=== PATIENT | male | born 1980 | race Caucasian/White ===

== ENCOUNTER 2021-06-28 19:29 | Emergency (ER) | payer OTHER ==
[~2021-06-28] VITALS: Ht 175.3 cm; Wt 72.6 kg
[2021-06-28 19:35] VITALS: BP 224/141
--- NOTE | 2021-06-28 19:38 | NUR ---
TO LOBBY A/W BED AMBULATORY
--- NOTE | 2021-06-28 20:05 | NUR ---
received pt from intake and placed to bed 02. pt currently a/o x 4, gcs 15. able to move all extremities freely. pt is a 41 year old male with hx of HTN, DM with LKW of 06/26/21 1200 coming in for partial hemianopia, mild aphasia and dysarthria. BS initial 395. pt denies headache. denies any head trauma within the last 2 weeks. sts having blurred vision approximately a week ago. denies any n/v a this time. stroke protocol in place.
[2021-06-28] MEDS ORDERED: NICARDIPINE HYDROCHLORIDE 25 MG in NACL 0.9% 240 ML IV ONE (20:10)
[2021-06-28] MEDS ORDERED: NICARDIPINE HYDROCHLORIDE 2.5 MG/ML VIAL IV ONE ×2 (20:10→22:23)
--- NOTE | 2021-06-28 20:15 | NUR ---
code brain called.
--- NOTE | 2021-06-28 20:25 | NUR ---
pt taken to CT per stroke protocol
[2021-06-28 20:33] LABS: BASOPHILS # (AUTO) 0.1 K/uL (0.00-0.22); BASOPHILS % (AUTO) 0.7 % (0.0-2.0); EOSINOPHILS # (AUTO) 0.1 K/uL (0-0.4); HEMATOCRIT 42.3 % (36-52); HEMOGLOBIN 14.6 g/dL (12.0-18.0); LYMPHOCYTES # (AUTO) 1.9 K/uL (2.0-11.5); LYMPHOCYTES % (AUTO) 22.6 % (20.5-51.1); MEAN CORPUSCULAR HEMOGLOBIN 30 pg (27-31); MEAN CORPUSCULAR HGB CONC 35 g/dL (33-37); MEAN CORPUSCULAR VOLUME 87.3 fL (80-94); MONOCYTES # (AUTO) 0.5 K/uL (0.8-1.0); MONOCYTES % (AUTO) 5.8 % (1.7-9.3); NEUTROPHILS % (AUTO) 69.9 % (42.2-75.2); PLATELET COUNT (AUTO) 427 K/uL (140-450); RED BLOOD CELL COUNT(AUTO) 4.85 MIL/uL (4.20-6.10); RED CELL DISTRIBUTION WIDTH 13.2 % (11.6-13.7); WHITE BLOOD COUNT (AUTO) 8.6 K/uL (4.8-10.8)
[2021-06-28 20:53] LABS: ALBUMIN 2.9 g/dL (3.4-5.0); ANION GAP 9.7 (8-16); ASPARTATE AMINOTRANSFERASE 14 U/L (15-37); CARBON DIOXIDE 30.5 mmol/L (21-32); CHLORIDE 93 mmol/L (98-107); CREATININE 1.1 mg/dL (0.6-1.3); GFR ARICAN-AMERICAN 95 mL/min (>90); GLUCOSE 385 mg/dL (74-106); POTASSIUM 3.2 mmol/L (3.5-5.1); SODIUM SERUM 130 mmol/L (136-145); TOTAL BILIRUBIN 0.4 mg/dL (0.0-1.0); UREA NITROGEN, BLOOD 15 mg/dL (7-18)
[2021-06-28 20:55] LABS: SALICYLATE < 2.8 mg/dL (2.8-20.0)
[2021-06-28 20:56] LABS: ACETAMINOPHEN < 0.5 ug/ml (10-30)
--- NOTE | 2021-06-28 21:07 | NUR ---
Carolyn carlin in [facility] - 06/28/21 at 2112 by [id number] [facility] 3. passed swallow screen
--- NOTE | 2021-06-28 21:12 | NUR ---
[facility] 4. failed dysphagia screening
--- NOTE | 2021-06-28 21:20 | NUR ---
joesph swab given to lab.
[2021-06-28] MEDS ORDERED: ASPIRIN 325 MG TAB PO ONE (21:45)
[2021-06-28] MEDS ORDERED: CLOPIDOGREL 75 MG TAB PO ONE (21:45)
[2021-06-28 21:58] LABS: APPEARANCE,URINE CLEAR (CLEAR); BILIRUBIN,URINE NEGATIVE (NEGATIVE); BLOOD, URINE NEGATIVE (NEGATIVE); LEUKOCYTE ESTERASE ,URINE NEGATIVE (NEGATIVE); NITRITE, URINE NEGATIVE (NEGATIVE); UGLUCOSE 3+ (NEGATIVE)
[2021-06-28 22:05] LABS: COLOR,URINE STRAW (YELLOW)
[2021-06-28] MEDS ORDERED: NACL 0.9% 1,000 ML IV ONE (22:10)
[2021-06-28 22:15] LABS: BARBITURATE, URINE NEGATIVE ng/ml (NEG <=200); BENZODIAZEPINE, URINE NEGATIVE ng/mL (NEG <=200); CANNABINOID, URINE NEGATIVE ng/mL (NEG <=50); COCAINE, URINE NEGATIVE ng/mL (NEG <=300); OPIATE, URINE NEGATIVE ng/mL (NEG <=2000); PHENCYCLIDINE SCREEN,URINE NEGATIVE ng/mL (NEG <=25)
[2021-06-28 22:45] VITALS: BP 166/72
--- NOTE | 2021-06-28 22:47 | NUR ---
report given to Jeni AUSTIN from [facility]. pt will be a ER to ER transfer under the care of Dr. Reynolds. # for report called @ [phone]
[2021-06-28] MEDS ORDERED: LABETALOL 100 MG/20 ML VIAL IVP ONE (22:55)
--- NOTE | 2021-06-28 23:07 | NUR ---
[facility] [id number] arrived to ER. report given to Jayme Cline. pt will be transported to [facility] ER to ER under the care of Dr. Reynolds.
--- NOTE | 2021-06-28 23:16 | NUR ---
called [facility] to speak with Jeni AUSTIN to give an update of pt status and transfer.
--- NOTE | 2021-06-28 23:17 | NUR ---
[facility] currently en route to [facility].
--- NOTE | 2021-06-30 12:15 | NUR ---
LATE ENTRY- IV NICARDIPINE DRIP DISCONTINUED AT 2317.
== END 2021-06-28 23:17 | disposition short-term general hospital (02) ==
LOC: MED 19:29
DX: I63.9 Cerebral infarction, unspecified (principal); Z20.822 Contact with and (suspected) exposure to COVID-19; I16.1 Hypertensive emergency
CPT/HCPCS: 36415; 70450; 70496; 70498; 71045; 80053; 80305; 81003; 82140; 82550; 84484; 85025; 87426; 93005; 96361; 96365; 96366; 96375; 99291; G0480; G0482; J3490; J7030; Q0092; Q9967; 36005

== ENCOUNTER 2021-08-18 23:04 | Emergency (ER) | payer OTHER ==
[~2021-08-18] VITALS: Ht 177.8 cm; Wt 86.2 kg
[2021-08-18 23:22] VITALS: BP 143/89
[2021-08-18 23:59] LABS: BASOPHILS # (AUTO) 0.1 K/uL (0.00-0.22); BASOPHILS % (AUTO) 1.1 % (0.0-2.0); EOSINOPHILS # (AUTO) 0.2 K/uL (0-0.4); EOSINOPHILS % (AUTO) 2.1 % (0.0-4.0); HEMOGLOBIN 11.6 g/dL (12.0-18.0); LYMPHOCYTES % (AUTO) 25.6 % (20.5-51.1); MEAN CORPUSCULAR HEMOGLOBIN 30 pg (27-31); MEAN CORPUSCULAR HGB CONC 34 g/dL (33-37); MEAN CORPUSCULAR VOLUME 87.7 fL (80-94); MONOCYTES # (AUTO) 0.6 K/uL (0.8-1.0); MONOCYTES % (AUTO) 7.8 % (1.7-9.3); NEUTROPHILS % (AUTO) 63.4 % (42.2-75.2); PLATELET COUNT (AUTO) 392 K/uL (140-450); RED BLOOD CELL COUNT(AUTO) 3.88 MIL/uL (4.20-6.10); RED CELL DISTRIBUTION WIDTH 13.8 % (11.6-13.7); WHITE BLOOD COUNT (AUTO) 7.9 K/uL (4.8-10.8)
[2021-08-19 00:13] LABS: PROTHROMBIN TIME 9.5 secs (10.8-13.4)
[2021-08-19 00:14] LABS: ALBUMIN 3.7 g/dL (3.4-5.0); ANION GAP 13.7 (8-16); CARBON DIOXIDE 25.9 mmol/L (21-32); POTASSIUM 3.6 mmol/L (3.5-5.1); TOTAL BILIRUBIN 0.3 mg/dL (0.0-1.0)
[2021-08-19 00:35] LABS: APPEARANCE,URINE CLOUDY (CLEAR); BILIRUBIN,URINE 2+ (NEGATIVE); BLOOD, URINE 3+ (NEGATIVE); COLOR,URINE BROWN (YELLOW); LEUKOCYTE ESTERASE ,URINE TRACE (NEGATIVE); NITRITE, URINE POSITIVE (NEGATIVE); PH,URINE 6.5 (5.0-9.0); UGLUCOSE NEGATIVE (NEGATIVE)
[2021-08-19 00:43] LABS: RBC,URINE TOO NUMEROUS TO COUN /HPF (0-5)
[2021-08-19] MEDS ORDERED: NACL 0.9% 1,000 ML IV ONE (01:00)
[2021-08-19] MEDS ORDERED: CEPH-588 PO (01:11)
[2021-08-19] MEDS ORDERED: cefTRIAXone 1,000 MG VIAL ONE (01:27)
[2021-08-19 04:13] VITALS: BP 128/75
== END 2021-08-19 03:20 | disposition home or self-care (01) ==
LOC: MED 23:04
DX: N39.0 Urinary tract infection, site not specified (principal); E86.0 Dehydration; E11.9 Type 2 diabetes mellitus without complications; I10 Essential (primary) hypertension; Z79.899 Other long term (current) drug therapy; Z98.890 Other specified postprocedural states
CPT/HCPCS: 36415; 80053; 81001; 85025; 85610; 85730; 87086; 96365; 96366; 99285; J0696; J7030